=== PATIENT | male | born 1955 | race Two or more races ===

== ENCOUNTER 2020-08-02 19:51 | Inpatient (IN) | payer MEDICAID ==
[~2020-08-02] VITALS: Ht 165.1 cm; Wt 54.4 kg
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
[2020-08-02] MEDS ORDERED: LIDOCAINE 1%-EPI 1:100,000 20 ML VIAL ONE (20:45)
[2020-08-02] MEDS ORDERED: MORPHINE SULFATE INJ 2 MG/ML DISP.SYRIN IV ONE (21:00)
[2020-08-02] MEDS ORDERED: CEPHALEXIN MONOHYDRATE 500 MG CAPSULE PO ONE (21:00)
[2020-08-02] MEDS ORDERED: TDAP [DIPH/PERTUSSIS/TET] 0.5 ML VIAL IM ONE (21:00)
[2020-08-02] MEDS ORDERED: LIDOCAINE 1%-EPI 1:100,000 50 ML VIAL IJ ONE (21:00)
[2020-08-02] MEDS ORDERED: MORPHINE SULFATE INJ 4 MG/ML DISP.SYRIN ONE (21:10)
--- NOTE | 2020-08-02 21:56 | NUR ---
[facility] ortho paged per Dr Cain.
[2020-08-02 22:00] LABS: BASOPHILS # (AUTO) 0.1 /CMM (0.0-0.2); BASOPHILS % (AUTO) 1.5 % (0.0-2.0); EOSINOPHILS % (AUTO) 0.3 % (0.0-6.0); HEMATOCRIT 31 % (39-51); HEMOGLOBIN 9.8 g/dL (13.5-17.5); LYMPHOCYTES # (AUTO) 1.1 /CMM (0.8-4.8); LYMPHOCYTES % (AUTO) 12.1 % (20.0-44.0); MEAN CORPUSCULAR HGB CONC 32 g/dl (31.0-36.0); MEAN CORPUSCULAR VOLUME 80 fL (80-96); MONOCYTES # (AUTO) 0.7 /CMM (0.1-1.30); MONOCYTES % (AUTO) 7.6 % (2.0-12.0); NEUTROPHILS # (AUTO) 7.1 /CMM (1.8-8.9); NEUTROPHILS % (AUTO) 78.5 % (43.0-81.0); PLATELET COUNT (AUTO) 169 /CMM (150-450); RED BLOOD CELL COUNT(AUTO) 3.86 MIL/uL (4.5-6.0); WHITE BLOOD COUNT (AUTO) 9.1 K/uL (4.3-11.0)
[2020-08-02 22:09] LABS: CREATININE 0.6 mg/dL (0.6-1.3)
[2020-08-02] MEDS ORDERED: IV NS 0.9% 250 ML IV ONE (22:30)
[2020-08-02] MEDS ORDERED: IOHEXOL-300 100 ML VIAL IV ONE (22:30)
--- NOTE | 2020-08-02 23:06 | NUR ---
MAUREENID SWABBED, SENT TO LAB.
[2020-08-03] MEDS ORDERED: MAGNESIUM HYDROXIDE 30 ML UDC PO PRN
[2020-08-03] MEDS ORDERED: ONDANSETRON HCL/PF 4 MG/2 ML VIAL IVP PRN
[2020-08-03] MEDS ORDERED: ACETAMINOPHEN 325 MG TABLET PO PRN
[2020-08-03] MEDS ORDERED: MORPHINE SULFATE INJ 2 MG/ML DISP.SYRIN IV PRN
[2020-08-03] MEDS ORDERED: MAG HYDROX/AL HYDROX/SIMETH 30 ML UDC PO PRN
[2020-08-03] MEDS ORDERED: Z GUARD REMEDY 2 OZ OINT TP PRN
--- NOTE | 2020-08-03 01:00 | NUR ---
report given to israel salazar for joaquín
--- NOTE | 2020-08-03 01:33 | NUR ---
pt transported to 3rd floor
--- NOTE | 2020-08-03 02:00 | NUR ---
MS RN NOTE: RECEIVED PATIENT FROM ER, NO ACUTE DISTRESS NOTED. BREATHING EVEN AND UNLABORED, NO SOB NOTED. PATIENT WITH MULTIPLE WOUNDS TO BLE, PICTURES TAKEN AND FILED IN CHART. ORIENTED PATIENT TO ROOM AND USE OF CALL LIGHT. BED LOCKED AND IN LOWEST POSITION, CALL LIGHT IN REACH. WILL CONTINUE TO MONITOR.
[2020-08-03 02:11] LABS: HEMOGLOBIN 9.1 g/dL (13.5-17.5)
[2020-08-03] MEDS ORDERED: CEPHALEXIN MONOHYDRATE 500 MG CAPSULE PO ONE (02:20)
[2020-08-03] MEDS ORDERED: TDAP [DIPH/PERTUSSIS/TET] 0.5 ML VIAL IM ONE (02:22)
[2020-08-03 02:30] VITALS: BP 96/67
--- NOTE | 2020-08-03 06:30 | NUR ---
MS RN NOTE: PATIENT RESTING IN BED, NO ACUTE DISTRESS NOTED. BREATHING EVEN AND UNLABORED, NO SOB NOTED. BED LOCKED AND IN LOWEST POSITION, CALL LIGHT IN REACH. WILL ENDORSE TO DAY NURSE TO CONTINUE WITH PLAN OF CARE.
--- NOTE | 2020-08-03 07:30 | NUR ---
MS RN NOTES PATIENT RECEIVED IN BED SLEEPING COMFORTABLY AT THIS TIME, ALERT AND ORIENTED X 3, THAI SPEAKING. ON ROOM AIR WITH NO SIGNS OF RESPIRATORY DISTRESS AT THIS TIME, WITH EVEN NON-LABORED BREATHING. PATIENT IV ACCESS INTACT AND PATENT. SKIN WARM AND DRY TO TOUCH, NOTED MULTIPLE SKIN ABRASIONS AND WOUNDS AT THIS TIME. PATIENT PRESENTING WITH NO PAIN OR DISCOMFORT AT THIS TIME. SAFETY PRECAUTIONS IMPLEMENTED WITH BED LOCKED, BED IN THE LOWEST POSITION, BILATERAL SIDE RAILS UP, BED ALARM ON, AND CALL LIGHT WITHIN EASY REACH OF PATIENT. WILL CONTINUE TO MONITOR PATIENT.
[2020-08-03 08:00] VITALS: BP 97/55
--- NOTE | 2020-08-03 08:03 | NUR ---
WOUND CARE CONSULT: LIMITED ASSESSMENT DUE TO PT REFUSAL TO TURN. PT PRESENTS WITH MULTIPLE AREAS OF SKIN DISCOLORATION, RT KNEE ABRASION, LEFT KNEE DRY ABRASION AND LEFT FOOT SUTURED LACERATION, ALL PRESENT ON ADMISSION. RECOMMENDATIONS MADE FOR WOUND CARE AND SKIN PROTECTION. DISCUSSED WITH NURSING STAFF. RN TO DISCUSS WITH PMD TO DECIDE IF DPM CONSULT NEEDED. MD IN AGREEMENT WITH PLAN OF CARE.
[2020-08-03] MEDS: PANTOPRAZOLE 40 MG TABLET.DR PO SCH (09:13)
--- NOTE | 2020-08-03 12:45 | NUR ---
MS RN NOTES COVID-19 PCR TEST DONE AND SENT TO THE LAB, WILL PLACE ISOLATION PRECAUTIONS AND CONTINUE TO MONITOR PATIENT.
--- NOTE | 2020-08-03 13:43 | NUR ---
Prototype Fabricator consult requested by DISPENSING AND MEASURING OPTICIAN Subha Mota for homelessness. SW attempted to meet with the patient at bedside however this SW was informed by bindery machine feeder offbearer Nino that the patient was transferred to another room for COVID-19 isolation as PCR exam is pending. SW will attempt to conduct assessment with the patient via hospital line/zoom.
--- NOTE | 2020-08-03 14:12 | NUR ---
SW attempted to speak with the patient via hospital line, however patient did not answer phone. SW will follow-up with patient's nurse to attempt to set up a zoom call.
--- NOTE | 2020-08-03 18:45 | NUR ---
MS RN NOTES PATIENT IN BED SLEEPING COMFORTABLY AT THIS TIME, ALERT AND ORIENTED X 3, NIGERIAN SPEAKING. ON ROOM AIR WITH NO SIGNS OF RESPIRATORY DISTRESS AT THIS TIME, WITH EVEN NON-LABORED BREATHING. PATIENT IV ACCESS INTACT AND PATENT. SKIN KEPT CLEAN, WARM AND DRY TO TOUCH, LIMITED SKIN ASSESSMENT DONE, WOUND CARE TREATMENTS DONE ORDERED. PATIENT PRESENTING WITH NO PAIN OR DISCOMFORT AT THIS TIME. ISOLATION PRECAUTIONS REMAINING DUE TO AWAITING FOR PCR RESULTS. SAFETY PRECAUTIONS IMPLEMENTED WITH BED LOCKED, BED IN THE LOWEST POSITION, BILATERAL SIDE RAILS UP, BED ALARM ON, AND CALL LIGHT WITHIN EASY REACH OF PATIENT. WILL ENDORSE PLAN OF CARE TO UPCOMING RN.
--- NOTE | 2020-08-03 19:35 | NUR ---
MS RN NOTES RECEIVED PATIENT IN BED SLEEPING COMFORTABLY AT THIS TIME, ALERT AND ORIENTED X 3, UPPER SORBIAN SPEAKING. ON ROOM AIR WITH NO SIGNS OF RESPIRATORY DISTRESS AT THIS TIME, WITH EVEN NON-LABORED BREATHING. PATIENT IV ACCESS INTACT AND PATENT. SKIN KEPT CLEAN, WARM AND DRY TO TOUCH, PATIENT PRESENTING WITH NO PAIN OR DISCOMFORT AT THIS TIME. ISOLATION PRECAUTIONS REMAINING DUE TO AWAITING FOR PCR RESULTS. SAFETY PRECAUTIONS EMPHASIZED WITH BED LOCKED, BED IN THE LOWEST POSITION, BILATERAL SIDE RAILS UP, BED ALARM ON, AND CALL LIGHT WITHIN EASY REACH OF PATIENT. ALL NEEDS ANTICIPATED. WILL CONTINUE TO MONITOR ACCORDINGLY.
[2020-08-03 20:00] VITALS: BP 113/62
--- NOTE | 2020-08-04 | NUR ---
RN NOTES PATIENT PULLED OUT HIS PERIPHERAL IV ACCESS, REFUSED FOR RE INSERTION.
[2020-08-04] MEDS: HYDROCODONE/APAP 5/325MG TABLET PO PRN (05:07)
--- NOTE | 2020-08-04 06:10 | NUR ---
MS RN NOTES ALL NEEDS ATTENDED AND MET. PATIENT IN BED SLEEPING COMFORTABLY AT THIS TIME, ORIENTED X 3, GREEK SPEAKING. ON ROOM AIR WITH NO SIGNS OF RESPIRATORY DISTRESS AT THIS TIME, WITH EVEN NON-LABORED BREATHING. PATIENT IV ACCESS INTACT AND PATENT. SKIN KEPT CLEAN, WARM AND DRY TO TOUCH, LIMITED SKIN ASSESSMENT DONE, WOUND CARE TREATMENTS DONE ORDERED. PATIENT PRESENTING WITH NO PAIN OR DISCOMFORT AT THIS TIME. ISOLATION PRECAUTIONS REMAINING DUE TO AWAITING FOR PCR RESULTS. SAFETY PRECAUTIONS EMPHASIZED WITH BED LOCKED, BED IN THE LOWEST POSITION, BILATERAL SIDE RAILS UP, BED ALARM ON, AND CALL LIGHT WITHIN EASY REACH.ALL NEEDS ANTICIPATED, WILL ENDORSE TO AM NURSE FOR CONTINUITY OF CARE.
[2020-08-04] MEDS: PANTOPRAZOLE 40 MG TABLET.DR PO SCH (06:31)
[2020-08-04 08:00] VITALS: BP 102/52
--- NOTE | 2020-08-04 14:35 | NUR ---
This SW followed up with the patient. Patient remains on COVID-19 isolation as PCR is pending. SW met with the patient at bedside following COVID-19 protocols given by child care assistant Nino. Patient is a 64 year-old male. Patient is alert and oriented x3 with periods of confusion. Patient reports to this SW that he has been homeless for 3 years after loosing his job due to his alcohol use. Patient reports that he is not working at this time. Patient reports that he meets with his family as they provide food and housing on occasion. Patient reported to this SW that he would like to return to [place], [facility] is not close to [facility]. Patient expressed frustration as this SW conducted assessment and patient stated that he wanted to leave. SW informed this patient that SW would notify interdisciplinary team regarding discharge as patient wants an update. SW and patient discussed need for homelessness community resources and patient did not want to receive them at this time however patient was receptive for this SW to place them in medical chart for discharge. Patient refused to sign homeless patient waiver form at this time. SW will also leave this in patient's chart for discharge. Patient asked this SW for a TAP card for him to return to his families home. Patient thanked this SW and patient asked this SW to leave room as he was tired and wanted to sleep. Plan: SW will place resources and homeless patient waiver form in patient's chart for discharge.
[2020-08-04 16:00] VITALS: BP 111/60
--- NOTE | 2020-08-04 19:03 | NUR ---
MS/RN CLOSING NOTES PATIENT IS ON BED,ALERT AND ORIENTED X3. PATIENT IN NO APPARENT RESPIRATORY DISTRESS NOTED AT THIS TIME. NO COMPLAINED OF PAIN NOTED AT THIS TIME. SEEN AND EXAMINED BY MD WITH ORDERS MADE AND CARRIED OUT. ALL DUE MEDICATION WAS GIVEN. SAFETY PRECAUTION WAS IN PLACED. BED IN LOWEST POSITION AND LOCKED. SIDERAILS UP X2 AND LOCKED. ASK PATIENT MULTIPLE TIME TO REINSERT IV LINE PATIENT STILL REFUSING EXPLAINED THE RISK AND BENEFITS. CALL LIGHT WITHIN REACH. WILL ENDORSED TO CORSET FITTER FOR GERHARD.
[2020-08-04 20:00] VITALS: BP 122/77
--- NOTE | 2020-08-04 23:10 | NUR ---
rn ms notes report given to israel lovett for continuity of care pt remains stable.
--- NOTE | 2020-08-05 07:21 | NUR ---
MS RN CLOSING NOTES PATIENT IN BED RESTING COMFORTABLY AT THIS TIME, ALERT AND ORIENTED X 3, SAMI SPEAKING. ON ROOM AIR WITH NO SIGNS OF RESPIRATORY DISTRESS AT THIS TIME, WITH EVEN NON-LABORED BREATHING. PATIENT IV ACCESS INTACT AND PATENT. SKIN KEPT CLEAN, WARM AND DRY TO TOUCH. SAFETY PRECAUTIONS EMPHASIZED WITH BED LOCKED, BED IN THE LOWEST POSITION, BILATERAL SIDE RAILS UP, BED ALARM ON, AND CALL LIGHT WITHIN EASY REACH OF PATIENT.ALL NEEDS MET. ENDORSED TO AM RN FOR CONTINUITY OF CARE.
--- NOTE | 2020-08-05 07:26 | NUR ---
MS RN OPENING NOTES RECEIVED PATIENT IN BED AWAKE, A/O X3. BRITISH SPEAKING. DENIES PAIN OR ANY DISCOMFORTS AT THIS TIME. ON ROOM AIR, BREATHING EVEN AND NON-LABORED. NO IV ACCESS NOTED, PER REPORT, PT REFUSES IV ACCESS TO BE INSERTED. SAFETY PRECAUTIONS IN PLACE: BED LOCKED AND IN THE LOWEST POSITION, BILATERAL SIDE RAILS UP X2. BED ALARM ON, AND CALL LIGHT WITHIN EASY REACH OF PATIENT. REMINDED PT NOT TO GET-OUT OF BED. WILL CONTINUE TO MONITOR PT ACCORDINGLY.
[2020-08-05 08:00] VITALS: BP 109/60
[2020-08-05] MEDS: PANTOPRAZOLE 40 MG TABLET.DR PO SCH (08:15)
[2020-08-05 16:00] VITALS: BP 93/51
--- NOTE | 2020-08-05 18:54 | NUR ---
MS RN CLOSING NOTES PATIENT IN BED AWAKE AND WATCHING TV AT THIS TIME. HOB ELEVATED. A/O X3. KAZAKH SPEAKING. TOLERATING ON ROOM AIR WITH NO SOB NOTED DURING SHIFT. NO IV ACCESS NOTED, PT REFUSES IV ACCESS TO BE INSERTED. PT TURNED AND REPOSITIONED Q 2HRS AND PRN. ALL NEEDS ANTICIPATED AND MET. SAFETY PRECAUTIONS KEPT IN PLACE: BED LOCKED AND IN LOWEST POSITION, BILATERAL SIDE RAILS UP X2. BED ALARM ON, AND CALL LIGHT WITHIN EASY REACH OF PATIENT. REMINDED PT NOT TO GET-OUT OF BED AND USE CALL LIGHT FOR ANY ASSISTANCE. WILL ENDORSE TO MILK HANDLER NURSE FOR GERHARD.
--- NOTE | 2020-08-05 19:15 | NUR ---
MS RN OPENING NOTES RECEIVED PATIENT IN BED AWAKE, A/O X3. COLOMBIAN SPEAKING. DENIES PAIN OR ANY DISCOMFORTS AT THIS TIME. ON ROOM AIR, BREATHING EVEN AND NON-LABORED. NO IV ACCESS NOTED, PER REPORT, PT REFUSES IV ACCESS TO BE INSERTED. SAFETY PRECAUTIONS IN PLACE: BED LOCKED AND IN THE LOWEST POSITION, BILATERAL SIDE RAILS UP X2. BED ALARM ON, AND CALL LIGHT WITHIN EASY REACH OF PATIENT. REMINDED PT NOT TO GET-OUT OF BED. WILL CONTINUE TO MONITOR PT ACCORDINGLY.
[2020-08-05 20:00] VITALS: BP 120/63
[2020-08-05 20:15] VITALS: BP 120/63
--- NOTE | 2020-08-05 20:15 | NUR ---
MS RN NOTE PATIENT'S VITALS ARE 120/63, 90, 20, 99.6, 99% AT RA. PATIENT REFUSED TO TAKE TYLENOL AT THIS TIME. COLD SPONGING DONE. WILL RECHECK PATIENT'S BODY TEMPERATURE AGAIN.
[2020-08-05] MEDS: HYDROCODONE/APAP 5/325MG TABLET PO PRN (21:47)
--- NOTE | 2020-08-05 21:47 | NUR ---
MS RN NOTE: PAIN PATIENT IS C/O RIGHT LEG PAIN 02/02, REQUESTED TO TAKE PAIN MEDICINE, PRN NORCO 5/325 1 TAB PO GIVEN. WILL REASSESS FOR EFFECTIVENESS.
[2020-08-05 22:15] VITALS: BP 117/65
--- NOTE | 2020-08-05 22:15 | NUR ---
MS RN NOTE PATIENT'S VITALS ARE 117/65, 86, 18, 98.8, 97@ RA. NO ACUTE CHANGES NOTED. WILL CONTINUE TO MONITOR.
--- NOTE | 2020-08-06 07:10 | NUR ---
MS RN CLOSING NOTES PATIENT IN BED RESTING COMFORTABLY AT THIS TIME, ALERT AND ORIENTED X 3, KAZAKH SPEAKING. ON ROOM AIR WITH NO SIGNS OF RESPIRATORY DISTRESS AT THIS TIME, WITH EVEN NON-LABORED BREATHING. SKIN KEPT CLEAN, WARM AND DRY TO TOUCH. SAFETY PRECAUTIONS EMPHASIZED WITH BED LOCKED, BED IN THE LOWEST POSITION, BILATERAL SIDE RAILS UP, BED ALARM ON, AND CALL LIGHT WITHIN EASY REACH OF PATIENT. ALL NEEDS MET. WILL ENDORSE TO AM RN FOR CONTINUITY OF CARE.
[2020-08-06 08:00] VITALS: BP 118/73
[2020-08-06] MEDS: PANTOPRAZOLE 40 MG TABLET.DR PO SCH (09:04)
[2020-08-06 16:00] VITALS: BP 116/75
--- NOTE | 2020-08-06 18:00 | NUR ---
received pt. alert and oriented x3.ecuadorean speaking.no acute distress,no c/o pain.dressings in place.appetite good.vs stable.
--- NOTE | 2020-08-06 19:45 | NUR ---
MS RN NOTE: RECEIVED PT IN ROOM RESTING. SOMALI SPEAKING. A/O X3. NO ACUTE DISTRESS NOTED. NO SOB. BED IN LOCKED AND LOW POSITION. WILL CONTINUE TO MONITOR.
[2020-08-07] MEDS: PANTOPRAZOLE 40 MG TABLET.DR PO SCH (06:41)
--- NOTE | 2020-08-07 07:41 | NUR ---
MS RN NOTE PATIENT IN BED RESTING COMFORTABLY. PATIENT IN NO ACUTE DISTRESS. NO SOB NOTED. PATIENT BREATHING IS EVEN AND UNLABORED. PATIENT BED ALARM IS ON. PATIENT SAFETY PRECAUTIONS IN PLACE. PATIENT BED IS LOCKED AND IN LOWEST POSITION. CALL LIGHT WITHIN REACH. WILL CONTINUE TO MONITOR.
--- NOTE | 2020-08-07 18:47 | NUR ---
MS RN CLOSING NOTE PATIENT IS IN BED RESTING COMFORTABLY. PATIENT IS IN NO ACUTE DISTRESS. NO SOB NOTED. PATIENTS BREATHING IS EVEN AND UNLABORED. PATIENT KEPT CLEAN AND DRY, COMFORTABLE THROUGHOUT THE SHIFT. PATIENT STATES NO PAIN AT THIS TIME. NEEDS AND CONCERNS ADDRESSED. PATIENTS BED IS LOCKED AND AT THE LOWEST POSITION, CALL LIGHT WITHIN REACH. ENDORSE TO THE OFFICE SUPPORT NURSE FOR GERHARD.
--- NOTE | 2020-08-07 19:30 | NUR ---
MS RN OPENING NOTE RECEIVED PATIENT IN BED. A/OX3 IRISH SPEAKING. TOLERATING ROOM AIR. RESPIRATIONS ARE EVEN AND UNLABORED. NO S/S SOB NOTED. NO C/O PAIN AT THIS TIME. IN NO APPARENT DISTRESS.NO IV ACCESS NOTED. BED IS LOW AND LOCKED, HOB ELEVATED IN SEMI FOWLERS,S DAO RAILS UP X2, CALL LIGHT WITHIN REACH. WILL CONTINUE TO MONITOR.
[2020-08-07 20:00] VITALS: BP 100/40
[2020-08-07 20:35] VITALS: BP 100/41
--- NOTE | 2020-08-08 03:09 | NUR ---
ms rn note asked patient if i can take pictures per protocol. asked why, informed him of the protocol. patient does not want to take more photos. will continue to monitor.
--- NOTE | 2020-08-08 07:30 | NUR ---
MS ELIO BARRIENTOS NOTE PATIENT RESTING IN BED. [id number] TOLERATING ROOM AIR. NO RESP DISTRESS. NO PAIN. NO DISTRESS.NO IV ACCESS. BED REMAINS LOW AND LOCKED, HOB ELEVATED IN SEMI FOWLERS,SIDE RAILS UP X2, CALL LIGHT WITHIN REACH. WILL ENDORSE TO NEXT SHIFT.
[2020-08-08 08:00] VITALS: BP 97/50
--- NOTE | 2020-08-08 08:00 | NUR ---
m/s parts facilitator: initial assessment received pt in bed awake, a/ox2-3; algerian speaking only. pt keeps urinating on the floor despite education provided. reality orientation provided prn. pt refuse skin assessment. will continue to monitor.
[2020-08-08] MEDS: PANTOPRAZOLE 40 MG TABLET.DR PO SCH (08:06)
--- NOTE | 2020-08-08 10:00 | NUR ---
m/s oil well services superintendent: notes pt in bed tuck in with blanket. no s/s of discomfort. will continue to monitor.
--- NOTE | 2020-08-08 12:00 | NUR ---
m/s inspector sheet metal parts: notes lunch served. pt continue to urinate on floor after urinating using urinal. evs notified to clean and disinfect the floor. will continue to monitor.
--- NOTE | 2020-08-08 15:00 | NUR ---
m/s recreational therapist: notes incontinent care rendered by staff. kept clean and dry. will continue to monitor. yelitza zamora) still working on placement.
[2020-08-08 16:00] VITALS: BP 126/63
--- NOTE | 2020-08-08 17:30 | NUR ---
RN opening notes Received Pt from ELIO Rothman. Pt is resting in bed comfortably. Pt is alert and orientedX2-3. Pt speaks Czech and able to make needs known. Pt does not have IV site. Safety precautions is maintained. Bed at low position, brakes locked, side rails upX3 and call light is within reach. Will continue to monitor.
[2020-08-08 20:00] VITALS: BP 100/41
[2020-08-09 08:00] VITALS: BP 110/63
[2020-08-09] MEDS: PANTOPRAZOLE 40 MG TABLET.DR PO SCH (08:19)
--- NOTE | 2020-08-09 08:44 | NUR ---
gritting machine operator closing notes Patient in bed resting comfortably. Patient breathing even and unlabored with no signs of SOB or acute respiratory distress. Safety measure is maintained, bed is in the lowest level, bed is locked, alarm is on, side rails x2 are up, and call light is within reach. Endorsed continuity of care to morning nurse.
--- NOTE | 2020-08-09 09:00 | NUR ---
MS/RN Medications Morning medications administered as ordered.
[2020-08-09 16:00] VITALS: BP 116/57
--- NOTE | 2020-08-09 16:13 | NUR ---
MS/RN S/B Dr Chance, DNP Seen by DNP - patient for discharge planning to [facility] facility, case management associate made aware.
--- NOTE | 2020-08-09 16:15 | NUR ---
MS/outside sales account manager Per case management, patient has bed available in [facility] tomorrow.
--- NOTE | 2020-08-09 19:50 | NUR ---
MS RN OPENING NOTES RECEIVED PATIENT IN BED, ALERT AND ORIENTED X 3. MACEDONIAN SPEAKING VERBALLY RESPONSIVE AND ABLE TO FOLLOW DIRECTION. BREATHING REGULAR AND UNLABORED ON ROOM AIR. NO IV ACCESS. DENIES PAIN/DISCOMFORT AT THIS TIME. BED LOW AND LOCKED ON SEMI FOWLERS POSITION. CALL LIGHT IN REACH. WILL CONTINUE TO MONITOR.
[2020-08-09 20:00] VITALS: BP 106/55
[2020-08-10] MEDS: PANTOPRAZOLE 40 MG TABLET.DR PO SCH (06:36)
--- NOTE | 2020-08-10 06:55 | NUR ---
MS RN CLOSING NOTES PATIENT IN BED, ALERT AND ORIENTED X 3. AFEBRILE WITH NO S/S OF DISTRESS OBSERVED. NO IV ACCESS. NO COMPLAINTS OF PAIN/DISCOMFORT REPORTED AT THIS TIME. BED LOW AND LOCKED ON SEMI FOWLERS POSITION. CALL LIGHT IN REACH. WILL ENDORSE TO MORNING SHIFT FOR GERHARD.
[2020-08-10 08:00] VITALS: BP 116/60
--- NOTE | 2020-08-10 09:50 | NUR ---
ms rn received on bed, awakelaert,oriented x4,not in any form of distress, respirations even and unlabored,no sob noted, lungs are clear,abdomen soft,positive bowel sounds,denies pain at this time,all needs attended.
--- NOTE | 2020-08-10 12:00 | NUR ---
ms rn on bed, no distress noted, will be d/c to [facility] today.
--- NOTE | 2020-08-10 14:15 | NUR ---
ms rn patient d/c to snf, report given to aiden wood,all needs attended.
--- NOTE | 2020-08-10 14:15 | NUR ---
ms rn ready to be d/c, patient refused to take photo of wound of the foot and knee,no iv to removed, patient refused to have one,denies pain at this time.
== END 2020-08-10 16:10 | DRG 341 ==
LOC: ER 19:55 → MED 08-03 00:22
PROVIDERS: ADMIT Registered Nurse; ATTEND Nurse Practitioner Acute Care
DX: S32.511A Fracture of superior rim of right pubis, initial encounter for closed fracture (principal); S91.311A Laceration without foreign body, right foot, initial encounter; D64.9 Anemia, unspecified; F10.10 Alcohol abuse, uncomplicated; R17 Unspecified jaundice; Z59.0 Homelessness; V03.09XA Pedestrian with other conveyance injured in collision with car, pick-up truck or van in nontraffic accident, initial encounter; Y93.84 Activity, sleeping; Y92.480 Sidewalk as the place of occurrence of the external cause; G93.41 Metabolic encephalopathy; S32.10XA Unspecified fracture of sacrum, initial encounter for closed fracture; Y90.9 Presence of alcohol in blood, level not specified; S30.0XXA Contusion of lower back and pelvis, initial encounter; R26.9 Unspecified abnormalities of gait and mobility
CPT/HCPCS: 36415; 72170-TC; 73552; 73590-TC; 73630-TC; 80048-TC; 82550-TC; 85025-TC; 85027-TC; 87081-TC; 90715; 97110-TC; 97112-TC; 97530-TC; A6253; C9803; G0378; J2270; J3490; J7050; Q9967; U0003

== ENCOUNTER 2020-10-11 17:55 | Emergency (ER) | payer MEDICAID ==
[~2020-10-11] VITALS: Ht 162.6 cm; Wt 52.6 kg
--- NOTE | 2020-10-11 18:00 | NUR ---
JAQUAN FROM STREETS C/O "NOT FEELING WELL." ADMITS TO ETOH. PATIENT A/OX3, BREATHING EVEN AND UNLABORED, NO SOB NOTED, NEEDS ATTENDED.
[2020-10-11] MEDS ORDERED: IV NS 0.9% 1,000 ML BAG IV ONE (18:30)
--- NOTE | 2020-10-11 18:51 | NUR ---
IV LINE ESTABLISHED, BLOOD DRAWN AND SENT TO LAB.
[2020-10-11 19:21] LABS: BASOPHILS % (AUTO) 0.8 % (0.0-2.0); EOSINOPHILS % (AUTO) 1.8 % (0.0-6.0); HEMATOCRIT 28 % (39-51); HEMOGLOBIN 9.5 g/dL (13.5-17.5); LYMPHOCYTES # (AUTO) 1.4 /CMM (0.8-4.8); LYMPHOCYTES % (AUTO) 33.1 % (20.0-44.0); MEAN CORPUSCULAR HGB CONC 33 g/dl (31.0-36.0); MEAN CORPUSCULAR VOLUME 84 fL (80-96); MONOCYTES # (AUTO) 0.6 /CMM (0.1-1.30); MONOCYTES % (AUTO) 13.7 % (2.0-12.0); NEUTROPHILS # (AUTO) 2.2 /CMM (1.8-8.9); NEUTROPHILS % (AUTO) 50.6 % (43.0-81.0); PLATELET COUNT (AUTO) 191 /CMM (150-450); RED BLOOD CELL COUNT(AUTO) 3.37 MIL/uL (4.5-6.0); WHITE BLOOD COUNT (AUTO) 4.3 K/uL (4.3-11.0)
[2020-10-11 19:58] LABS: ALANINE AMINOTRANSFERASE 28 U/L (12-78); ALBUMIN 2.4 g/dL (3.4-5.0); ALCOHOL, BLOOD < 3 mg/dL (0-0); ALKALINE PHOSPHATASE 157 U/L (46-116); ASPARTATE AMINOTRANSFERASE 43 U/L (15-37); BILIRUBIN,DIRECT 0.2 mg/dL (0.0-0.2); BILIRUBIN,TOTAL 0.8 mg/dL (0.2-1.0); CALCIUM, SERUM 8.3 mg/dL (8.5-10.1); CARBON DIOXIDE 27 mmol/L (21-32); CHLORIDE 103 mmol/L (98-107); CREATININE 0.5 mg/dL (0.6-1.3); GLUCOSE 91 mg/dL (74-106); POTASSIUM 3.2 mmol/L (3.5-5.1); SODIUM SERUM 139 mmol/L (136-145); TOTAL PROTEIN, SERUM 6.7 g/dL (6.4-8.2); UREA NITROGEN, BLOOD 4 mg/dL (7-18)
[2020-10-11 20:24] LABS: BILIRUBIN,URINE SMALL (NEGATIVE); COLOR,URINE DARK YELLOW (YELLOW); LEUKOCYTE ESTERASE ,URINE Negative (NEGATIVE); NITRITE, URINE Negative (NEGATIVE); PH,URINE 5.5 (5.0-8.0); PROTEIN,URINE Negative (NEGATIVE); UGLUCOSE Negative (NEGATIVE)
[2020-10-11 20:29] LABS: BACTERIA,URINE Rare /HPF (None Seen); RBC,URINE NONE SEEN /HPF (0-2); SQUAMOUS EPITHELIAL CELL,UR Few /HPF (None Seen); WBC,URINE NONE SEEN /HPF (0-3)
[2020-10-11] MEDS ORDERED: POTASSIUM CHLORIDE 20 MEQ TAB.PRT.SR PO ONE ×2 (20:30→22:42)
--- NOTE | 2020-10-11 22:45 | NUR ---
Patient discharged to home in stable condition. Written and verbal after care instructions given. Patient verbalizes understanding of instruction.IV removed. Catheter intact and site benign. Pressure and 4x4 applied to site. No bleeding noted.Pt ambulatory with a steady gait
[2020-10-11 22:52] VITALS: BP 110/78
== END 2020-10-11 22:53 | disposition home or self-care (01) ==
LOC: ER 17:59
DX: R53.1 Weakness (principal); E86.0 Dehydration; E87.6 Hypokalemia; F10.129 Alcohol abuse with intoxication, unspecified; Y90.0 Blood alcohol level of less than 20 mg/100 ml
CPT/HCPCS: 36415; 80048; 80076; 80320; 81001; 82962; 83690; 85025; 96360; 99283; J7030; G0480